=== PATIENT | female | born 1985 | race Caucasian/White ===

== ENCOUNTER 2017-11-07 08:01 | Inpatient (IN) | payer OTHER, MEDICAID ==
[2017-11-07 08:58] LABS: ADD MAN DIFF? NO
[2017-11-07 08:59] LABS: BASOPHIL # 0.1 10^3/ul (0.0-0.1); BASOPHILS % 0.4 % (0.0-2.0); EOSINOPHILS # 0.2 10^3/ul (0.0-0.5); HEMATOCRIT 35.7 % (37.0-47.0); LYMPHOCYTES # 1.8 10^3/ul (0.8-2.9); MEAN CORPUSCULAR HEMOGLOBIN 30.1 pg (29.0-33.0); MEAN CORPUSCULAR HGB CONC 33.6 g/dl (32.0-37.0); MEAN CORPUSCULAR VOLUME 89.5 fl (82.0-101.0); MEAN PLATELET VOLUME 8.4 fl (7.4-10.4); MONOCYTE # 0.8 10^3/ul (0.3-0.9); MONOCYTES % 4.9 % (0.0-11.0); NEUTROPHIL # 12.4 10^3/ul (1.6-7.5); NEUTROPHILS % 77.7 % (39.0-77.0); PLATELET COUNT 272 10^3/UL (140-415); RED BLOOD COUNT 3.99 10^6/ul (4.20-5.40); RED CELL DISTRIBUTION WIDTH 13.8 % (11.5-14.5)
[2017-11-07 08:59] LABS: WHITE BLOOD COUNT 15.9 10^3/ul (4.8-10.8)
[2017-11-07 09:16] LABS: ADD UMIC YES; UR ASCORBIC ACID NEGATIVE (NEGATIVE); UR BACTERIA FEW /HPF (NONE SEEN); UR BILIRUBIN (Dip) NEGATIVE (NEGATIVE); UR BLOOD (Dip) 1+ mg/dL (NEGATIVE); UR CLARITY CLEAR (CLEAR); UR COLOR STRAW (YELLOW); UR GLUCOSE (Dip) NEGATIVE (NEGATIVE); UR KETONES (Dip) NEGATIVE (NEGATIVE); UR LEUKOCYTE ESTERASE (Dip) NEGATIVE Leu/ul (NEGATIVE); UR NITRITE (Dip) NEGATIVE (NEGATIVE); UR RBC 0 /HPF (0-5); UR SPECIFIC GRAVITY (Dip) 1.005 (1.003-1.030); UR TOTAL PROTEIN (Dip) NEGATIVE (NEGATIVE); UR UROBILINOGEN (Dip) NEGATIVE (NEGATIVE); UR WBC 2 /HPF (0-5)
[2017-11-07] MEDS: LACTATED RINGER'S 1,000 ML IV ×2 (09:53→17:32)
[2017-11-07] MEDS ORDERED: ACETAMINOPHEN 325 MG TAB PO (10:30)
[2017-11-07] MEDS ORDERED: AL HYDROX/MG HYDROX/SIMETH 30 ML CUP PO (10:30)
[2017-11-07] MEDS: BETAMET NA PHOS/AC(6 MG/ML) 5ML INJ IM (10:52)
[2017-11-07] MEDS: MAGNESIUM SULFATE 4 GM/100 ML 100 ML IV (11:00)
[2017-11-07] MEDS: MAGNESIUM SULFATE 20 GM/500 ML 500 ML IV ×2 (11:16→20:53)
[2017-11-07] MEDS ORDERED: CEFAZOLIN 2 GM/50 ML (PMX) 50 ML IVPB (14:30)
[2017-11-07] MEDS: CEFAZOLIN 2 GM/50 ML (PMX) 50 ML IVPB ×2 (14:45→18:43)
[2017-11-07 18:51] LABS: MAGNESIUM 5.3 mg/dl (1.7-2.5)
[2017-11-08 01:41] LABS: MAGNESIUM 5.7 mg/dl (1.7-2.5)
[2017-11-08] MEDS: CEFAZOLIN 2 GM/50 ML (PMX) 50 ML IVPB ×3 (05:50→11:47)
[2017-11-08] MEDS: MAGNESIUM SULFATE 20 GM/500 ML 500 ML IV (05:56)
[2017-11-08 07:28] LABS: MAGNESIUM 5.9 mg/dl (1.7-2.5)
[2017-11-08] MEDS: LACTATED RINGER'S 1,000 ML IV (08:18)
[2017-11-08] MEDS: PRENATAL VITAMIN PO (08:19)
[2017-11-08] MEDS: BETAMET NA PHOS/AC(6 MG/ML) 5ML INJ IM (09:47)
== END 2017-11-08 16:50 | disposition home or self-care (01) | DRG 778 ==
LOC: OBT 08:01 → L-D 08:02 → OBT 09:28 → L-D 09:30 → PP1 10:29
DX: O60.02 Preterm labor without delivery, second trimester (principal); O46.92 Antepartum hemorrhage, unspecified, second trimester; Z3A.23 23 weeks gestation of pregnancy
CPT/HCPCS: 36415; 76815; 76817; 81001; 83735; 85025; 87086